=== PATIENT | female | born 1985 | race Caucasian/White ===

== ENCOUNTER 2023-11-07 08:57 | Day surgery (SDC) | payer OTHER, SELFPAY ==
[2023-11-07 09:38] VITALS: BMI 33.4
[2023-11-07 09:43] LABS: Ur HCG Qualitative* Negative (Negative)
[2023-11-07 09:58] VITALS: BP 115/75; PULSE 85; RESP 18; TEMP 36.5; O2SAT 96
[2023-11-07] MEDS: SODIUM CHLORIDE 0.9 % (FLUSH) 10 ML SYRINGE IVF (09:59)
[2023-11-07] MEDS: LACTATED RINGERS 1000 ML 1,000 ML 100 ML IV (09:59)
--- NOTE | 2023-11-07 10:48 | W.PM.H&PU ---
History & Physical Update History & Physical Update H&P Reviewed and patient assessed: No changes noted
[2023-11-07] MEDS: CEFAZOLIN 2 GM INJ IVP (11:00)
[2023-11-07] MEDS: BUPIVACAINE 0.25% 30 ML INJECTION (11:05)
[2023-11-07] MEDS: LIDOCAINE 1% 5 ml (pf) 5 ML VIAL 30 ML INJECTION (11:05)
--- NOTE | 2023-11-07 11:31 | PM.GSPRC ---
Operative Note Date of procedure: 11/07/23 Pre-op diagnosis: 1. Left upper quadrant abdominal mass 2. Skin tags of the abdomen and neck Post-op diagnosis: Same Type of Procedure: 1. Excision of left upper quadrant abdominal mass, 3 cm 2. Skin tag removal x7 Indications: Patient is a 38-year-old female who presented to clinic with a mass palpated in her left upper quadrant. CT scan was performed with evidence of a subcutaneous mass that extended to the underlying fascia. Risks and benefits of operative intervention to remove were discussed at length with the patient. Risks included, but were not limited to: Bleeding, infection, risk of damage to any structures and possible need for additional procedures. In addition to removal of the mass the patient requested that 7 symptomatic skin tags be removed. Procedure Description: After discussing the risks and benefits of the procedure, the patient signed informed consent.? The operative site was marked and the patient was brought to the operating room and placed on the operating table in supine position.? Care was taken to pad the patient's pressure points.?? The patient was then given sedation by anesthesia.?? The operative site was then prepped and draped in the usual sterile fashion.? A time-out was then performed. A subcutaneous mass was palpated in the left upper quadrant. A 3 cm transverse incision was made over the area. Dissection was carried down with cautery through subcutaneous tissue. The mass was able to be palpated firm, and well encapsulated. It was circumferentially dissected down and appeared to be adherent to the underlying anterior fascia of the rectus. A small portion of the fascia was removed with the mass in its entirety. The specimen was then passed off to the back table to be sent for pathology. The fascial defect was closed with running 0 Vicryl suture. Hemostasis was assured with electrocautery. The local anesthetic was used to infiltrate the area. The incision was then closed in layers with interrupted 3 0 Vicryl in a running 4 O Monocryl. Steri-Strips were placed over the incision. Patient had 7 symptomatic skin tags that she requested removal of. Two were on her abdomen, 3 on the left side of her neck and 2 on the lower right side of her neck. Each skin tag was 1 mm in size. Each area was prepped with Betadine. 1% lidocaine with 0.25% Marcaine was used to anesthetize the area. The skin tags were sharply excised and the resulting wound closed with Dermabond. All skin tags were sent for disposal. The patient was then woken and transported to the recovery area in stable condition. ? The patient tolerated the procedure well. Findings: Left upper quadrant abdominal mass, sent for pathology. Skin tags x7 removed Anesthesia: MAC and local Surgeon: Damaris Sheridan MD Estimated blood loss (mL): 2 Additional Specimen Information: Left upper quadrant abdominal mass Condition: stable Disposition: same day
[2023-11-07 11:35] VITALS: BP 99/59; PULSE 88; RESP 16; TEMP 36.9; O2SAT 94
--- NOTE | 2023-11-07 11:39 | W.ANESCHARGE ---
Anesthesia Charges Start Date/Time Anesthesia Start Date: 11/07/23 Anesthesia Start Time: 10:53 Stop Date/Time Anesthesia Stop Date: 11/07/23 Anesthesia Stop Time: 11:38
[2023-11-07 11:55] VITALS: BP 100/85; PULSE 68; RESP 16; O2SAT 100
[2023-11-07 12:15] VITALS: BP 105/75; PULSE 68; RESP 16; O2SAT 100
[2023-11-07 12:30] VITALS: BP 108/65; PULSE 67; RESP 16; TEMP 36.9; O2SAT 99
--- NOTE | 2023-11-07 12:40 | W.ANESCHARGE ---
Anesthesia Charges Start Date/Time Anesthesia Start Date: 11/07/23 Anesthesia Start Time: 10:53 Stop Date/Time Anesthesia Stop Date: 11/07/23 Anesthesia Stop Time: 11:38
== END 2023-11-07 12:59 | disposition home or self-care (01) ==
PROVIDERS: Anesthesiology; PCP Physician Assistant; Visit Provider Surgery
PROC: (CPT 11200; principal; 2023-11-07 10:45)
DX: D48.113 Desmoid tumor of abdominal wall (principal); L91.8 Other hypertrophic disorders of the skin; R19.02 Left upper quadrant abdominal swelling, mass and lump
CPT/HCPCS: 11200; 22903; 00400; 81025; 88305; J0665; J0690; J2250; J2405; J2704; J3010; J7120